=== PATIENT | male | born 1980 | race Caucasian/White ===

== ENCOUNTER 2016-10-14 11:00 | Inpatient (IN) | payer OTHER ==
[~2016-10-14] VITALS: Ht 182.9 cm; Wt 88.5 kg
--- NOTE | ~2016-10-14 | PN ---
Unit #: [id number] #: [id number] Patient: KEYONA LIU [id number] [facility] [address] [place] [address] [id number] MR#: [id number] NAME: KEYONA LIU ROOM: P171 Age: 35 Sex: M Admission Date: 10/14/2016 : 1980 Attending Physician: Kyle Castro M.D. Admitting Physician: Kyle Castro M.D. Primary Care Physician: Cari Primary Care Physician OSMAR PROGRESS NOTES DATE OF SERVICE 10/15/16 DISCUSSION Mr. Herring is a 35-year-old male seen on 10/15/16. Patient interviewed, chart reviewed, obtained information from nursing staff. Patient adjusting fairly well to unit rules. Seclusive, isolated, guarded, flat affect, anxious, nervous. Compliant with medications. REVIEW OF SYSTEMS Complete review of systems unremarkable. MENTAL STATUS EXAMINATION GENERAL APPEARANCE: Patient dressed casually. ATTENTION SPAN AND CONCENTRATION: Fair. ORIENTATION: Oriented in time, place and person. MOOD AND AFFECT: Labile. SPEECH: Monotone. THOUGHT PROCESS: [place]. Patient denied any thoughts of harming self or others. RECENT AND REMOTE MEMORY: Poor. INSIGHT AND JUDGEMENT: Poor. DIAGNOSIS Opiate use disorder, severe. ASSESSMENT/PLAN Advised to continue with current medication and therapeutic protocol. If needed, consider further adjustment of medication. Dictated by... Chela Mantilla/levi TD: 10/17/2016 11:10 JOB #: [id number] Unit #: [id number] #: [id number] Patient: KEYONA LIU PROGRESS NOTES Page 1 of 1 X Kyle Castro MD PROGRESS NOTE
--- NOTE | ~2016-10-14 | PN ---
Unit #: [id number] #: [id number] Patient: KEYONA LIU [id number] [facility] [address] [place] [address] [id number] MR#: [id number] NAME: KEYONA LIU ROOM: 71 Age: 35 Sex: M Admission Date: 10/14/2016 : 1980 Attending Physician: Kyle Castro M.D. Admitting Physician: Kyle Castro M.D. Primary Care Physician: Primary Care Physician Cari BOX NOTES DATE OF SERVICE: 10/16/2016 DISCUSSION Mr. Herring is a 35-year-old male. The patient interviewed, chart reviewed, and obtained information from nursing staff. The patient reported having severe anxiety and mood lability, but denied any thoughts of harming self or others. The patient's vital signs; temperature 98.6, pulse 80, blood pressure 132/82. REVIEW OF SYSTEMS Complete review of system unremarkable. MENTAL STATUS EXAMINATION General appearance; the patient dressed casually. Attention span and concentration, fair. Oriented in time, place, and person. Mood and affect, labile. Speech, monotone. Thought process, concrete. The patient denied any thoughts of harming self or others. Recent and remote memory, poor. Insight and judgment, poor. DIAGNOSES 1. Opioid use disorder, severe. 2. Amphetamine use disorder, severe. 3. Mood disorder, not otherwise specified. ASSESSMENT/PLAN Advised to continue with current medication and therapeutic protocol with a plan to add Vistaril 50 mg t.i.d. Dictated by... Kyle Castro M.D. TUSHAR/alma delia TD: 10/17/2016 20:12 JOB #: [id number] Unit #: [id number] #: [id number] Patient: KEYONA LIU PROGRESS NOTES Page 1 of 1 X Kyle Castro MD PROGRESS NOTE
--- NOTE | ~2016-10-14 | DS ---
Unit #: [id number] #: [id number] Patient: KEYONA LIU [id number] [facility] [address] [place] [address] [id number] MR#: [id number] NAME: KEYONA LIU ROOM: [facility] Age: 35 Sex: M Admission Date: 10/14/2016 : 1980 Discharge Date: 10/17/2016 Attending Physician: Kyle Castro M.D. Primary Care Physician: Primary Care Physician No DISCHARGE SUMMARY REASON FOR ADMISSION Detox, addiction. DIAGNOSTIC STUDIES LABORATORY DATA: Urine drugs screen positive for methadone. HOSPITAL COURSE The patient was admitted to inpatient unit on 10/14/2016 and discharged on 10/17/2016. The patient was treated with group therapy, individual therapy, medication management, and chemical dependency group. The patient was responsive to treatment and showed improvement. Subsequently, the patient was discharged with a plan to followup in outpatient program. DISCHARGE MEDICATIONS 1. Trazodone 150 mg at bedtime for sleep. 2. Neurontin 300 mg twice daily for chronic pain. The patient was given 2 weeks' supply only. DISCHARGE DIAGNOSES PSYCHIATRIC: Opiate use disorder, severe, F11.20 Amphetamine use disorder, severe, F15.20 Mood disorder not otherwise specified, F32.9 SECONDARY: Deferred. MEDICAL: Chronic pain. STRESSORS: Psychosocial stressor. FOLLOWUP CARE The patient to follow up in outpatient clinic as per director of social work. CONDITION ON DISCHARGE The patient pleasant, cooperative. Denied any psychotic symptom or any suicidal ideation. PROGNOSIS Guarded. DIET AND ACTIVITY As tolerated. Dictated by... Kyle Castro M.D. Unit #: [id number] #: [id number] Patient: KEYONA LIU SZC/bzg TD: 10/18/2016 11:11 JOB #: [id number] DISCHARGE SUMMARY Page 1 of 1 X Kyle Castro MD DISCHARGE SUMMARY
--- NOTE | ~2016-10-14 | HP ---
Unit #: [id number] #: [id number] Patient: KEYONA LIU [id number] [place] [address] [id number] MR#: [id number] NAME: KEYONA LIU ROOM: [facility] Age: 35 Sex: M Admission Date: 10/14/2016 : 1980 Attending Physician: Kyle Castro M.D. Admitting Physician: Kyle Castro M.D. Primary Care Physician: Primary Care Physician No HISTORY AND PHYSICAL HISTORY OF PRESENT ILLNESS Patient is a 35-year-old male admitted to [facility] on 10/14/2016 for opioid addiction. PAST MEDICAL HISTORY Includes polysubstance abuse including heroin daily. PAST SURGICAL HISTORY 1. Appendectomy. 2. Liposuction. SOCIAL HISTORY He is unemployed. He lives with his parents. He has a history of polysubstance and uses heroin daily. FAMILY MEDICAL HISTORY Noncontributory. ALLERGIES No known drug allergies. CURRENT MEDICATIONS Keflex. REVIEW OF SYSTEMS CONSTITUTIONAL: No fever or chills. HEENT: Denies any sore throat, ear pain or runny nose. CARDIOVASCULAR: Denies chest pain, irregular heart rhythm or palpitations. CHEST: Denies shortness of breath or cough. No hemoptysis. GASTROINTESTINAL: Denies nausea, vomiting, diarrhea or chronic constipation. ENDOCRINE: Denies history of increased thirst or urination. No recent significant weight loss or gain. GENITOURINARY: Denies dysuria, frequency, or hematuria. SKIN: Denies any rashes. HEMATOLOGIC: Denies history of increased bleeding or bruising. MUSCULOSKELETAL: Denies any hot, swollen joints. No generalized muscle pain. NEUROLOGIC: Denies problems with vision or speech. No frequent, severe headaches. No numbness, tingling or weakness in any extremities. Denies loss of bladder or bowel control. PHYSICAL EXAM Unit #: [id number] #: [id number] Patient: KEYONA LIU GENERAL: He is awake, alert and oriented in no acute distress. VITAL SIGNS: Temperature 98.0, heart rate 83, respiration 20, blood pressure 123/85. HEIGHT: 6 foot 0. WEIGHT: 195 pounds. SKIN: Warm and dry without rash or lesion. HEENT: Normocephalic. TMs not viewed. Oral and nasal passages clear. Conjunctivae clear. PERRLA. EOMs intact. NECK: Supple without lymphadenopathy or thyromegaly. HEART: Regular rate and rhythm without murmur. LUNGS: Clear. ABDOMEN: Soft, nontender. : Not done. EXTREMITIES: No evidence of cyanosis, clubbing or edema. Moves all without focal deficit. NEUROLOGICAL: Grossly within normal limits. Cranial Nerves: II: Visual leiva are intact. III, IV AND : Extraocular movements are intact. Pupils are equal, round and reactive to light. V: Facial sensation is grossly normal. VII: Facial movements and expression are normal. VIII: Auditory acuity grossly intact. IX, X: Uvula is midline. Phonation is normal. XI: Patient shrugs shoulders and turns head normally. XII: Tongue protrudes in the midline. Sensory and Motor Function: Sensory and motor sensation is grossly normal. Motor: moves all extremities well. IMPRESSION 1. Psychiatric admission. 2. Opioid addiction. RECOMMENDATIONS Psychiatric per psychiatrist. MEDICAL: No contraindication to participate in facility activities. MEDICAL PROGNOSIS Good. MEDICAL CONDITION Stable. Dictated by... Jairo Moore/lokesh TD: 10/16/2016 01:47 JOB #: [id number] Unit #: [id number] #: [id number] Patient: KEYONA LIU HISTORY AND PHYSICAL Page 1 of 1 X SEBAS FARRELL APRN X HISTORY AND PHYSICAL
--- NOTE | ~2016-10-14 | PA ---
Unit #: [id number] #: [id number] Patient: NIMA LIU [id number] [facility] [address] [place] [address] [id number] MR#: [id number] NAME: NIMA LIU ROOM: [facility] Age: 35 Sex: M Admission Date: 10/14/2016 : 1980 Date of Assessment: Attending Physician: Kyle Castro M.D. Admitting Physician: Kyle Castro M.D. PSYCHIATRIC ASSESSMENT INFORMANTS The patient reliability, fair informant and chart reliability, good. CHIEF COMPLAINT Addiction to opioids, needing help. HISTORY OF PRESENT ILLNESS Mr. Nima Liu is a 35-year-old male, who has a history of previous outpatient treatment in 06/2016, 07/2016, and other places. Lives at home with mother and father, currently unemployed. The patient presented with detox from opioids. The patient reported abusing opioids pills, addicted to opioids after plastic surgery 10 years ago. The patient reported he was on methadone for almost 4 years. The patient was attempting to wean himself off from methadone, went from 70 to 35 mg. The patient realized that it was not enough and decided to start using heroin. The patient is agitated and anxious. The patient reported tobacco use, age of onset 15; alcohol, age of onset 17; marijuana, age of onset 17; crack cocaine, age of onset 21; opioid, age of onset 22; amphetamine, age of onset 35; benzodiazepine, 24; and methadone, 31. The patient reported longest period of sobriety 2 to 3 days. The patient reported no history of any blackout, HIV, or hepatitis, but history of withdrawal symptoms and IV drug use. The patient reported abdominal cramping, muscle cramping, diarrhea, depressed mood, irritability, nervousness, poor appetite, poor concentration, restlessness, sleep problem, and tremor. PAST PSYCHIATRIC HISTORY Remarkable for history of [facility], [facility] on [facility]/09/2016. No known history of any suicide attempt. FAMILY HISTORY AND SOCIAL HISTORY The patient has a good support system. No history of abuse. The patient reports legal problem and court date. History of alcohol problem in grandfather and substance abuse in grandmother. MEDICAL HISTORY Unremarkable for any chronic medical illness. Musculoskeletal; muscle strength and tone, no atrophy or abnormal movement. Gait normal. MEDICATION HISTORY The patient was on methadone, but currently on no medication. ALLERGIES No known drug allergies. Unit #: [id number] #: [id number] Patient: NIMA LIU SUBSTANCE ABUSE HISTORY Please see above. REVIEW OF SYSTEMS HEENT: Eyes, clear. Ears, nose, mouth, and throat; clear. CARDIOVASCULAR: Unremarkable. RESPIRATORY: Unremarkable. GI: Unremarkable. : Unremarkable. SKIN: Unremarkable. LYMPH NODE: Unremarkable. NEUROLOGIC: Unremarkable. ENDOCRINE: Unremarkable. HEMATOLOGIC: Unremarkable. ALLERGIC/IMMUNOLOGIC: Unremarkable. MUSCULOSKELETAL: Muscle strength and tone, no atrophy or abnormal movement. Gait normal. MENTAL STATUS EXAMINATION CONSTITUTIONAL: Measurement of vital signs; temperature 98.0, heart rate 83, respiratory rate 20, and blood pressure 123/85. Height 6 feet and weight 195 pounds. GENERAL APPEARANCE: The patient dressed casually. The patient did not show any facial deformity. MUSCULOSKELETAL: Please see above. PSYCHIATRIC EXAMINATION Description of speech; regular rate, normal volume, normal articulation, and coherent. Description of thought process, goal directed. Description of association, intact. Description of abnormal psychotic thinking; the patient denied any hallucination or delusions, but mood lability and substance abuse. Description of thought process, goal directed. Description of judgment: Concerning everyday activity, poor. Social situation, poor. Concerning psychiatric condition, poor. Complete mental status examination; oriented in time, place, and person. Recent and remote memory, fair. Attention span and concentration, fair. Language, able to name object and repeat phrases. Fund of knowledge, aware of current event and passive vocabulary intact. Mood and affect, sad and dysphoric. Insight and judgment, fair to poor. ASSETS AND LIABILITIES Assets, the patient is articulate and able to take care of his ADL. Liability, history of depression and substance abuse. ADMITTING DIAGNOSES Psychiatric: Opioid use disorder, severe, F11.20; amphetamine use disorder, severe, F15.20; and mood disorder, not otherwise specified, F32.9. Secondary diagnosis: Deferred. Medical diagnosis: None. Stressors: Psychosocial stressors and legal problem. PSYCHIATRIC PLAN AND TREATMENT GOAL AND DISCHARGE PLAN Unit #: [id number] #: [id number] Patient: NIMA LIU 1. Advised to admit the patient on the inpatient unit. Provide safe, supportive, and structured environment. 2. Ordered labs; CBC, CMP, UA, and UDS. 3. Precaution for aggression, self-harm, detox protocol, and detox monitoring. 4. The patient to start with Seroquel for mood symptom and sleep. The patient to attend group therapy, individual therapy, and chemical dependency program. Treatment goal to attain euthymic mood, gain insight into his problem, and learn coping skills. DISCHARGE PLAN Plan to stabilize the patient and consider followup in outpatient program. ESTIMATED LENGTH OF STAY 5 days. Dictated by... Kyle Castro M.D. TUSHAR/alma delia TD: 10/15/2016 18:42 JOB #: [id number] PSYCHIATRIC ASSESSMENT Page 1 of 1 X Kyle Castro MD X PSYCHIATRIC ASSESSMENT
[2016-10-17 12:53] LABS: URINE APPEARANCE CLEAR; URINE BILIRUBIN NEG (NEG); URINE BLOOD NEG (NEG); URINE COLOR YELLOW; URINE GLUCOSE NEG (NEG); URINE KETONE NEG (NEG); URINE LEUKOCYTE ESTERASE NEG (NEG); URINE NITRATE NEG (NEG); URINE PH 6.5 (5-8); URINE PROTEIN NEG (NEG); URINE SPECIFIC GRAVITY 1.004 (1.003-1.035); URINE UROBILINOGEN 0.2 MG/DL (NEG)
[2016-10-17 13:53] LABS: AMPHETAMINE NEG (NEG); BARBITURATES NEG (NEG); BENZODIAZEPINES NEG (NEG); COCAINE NEG (NEG); MARIJUANA NEG (NEG); OPIATES NEG (NEG); TRICYCLIC ANTIDEPRESSANTS NEG (NEG); U METHADONE NEG (NEG)
== END 2016-10-17 10:05 | disposition home or self-care (01) | DRG 897 ==
LOC: P1E 14:08
PROVIDERS: Psychiatry & Neurology Psychiatry
PROC: HZ2ZZZZ Detoxification Services for Substance Abuse Treatment (ICD-10-PCS; principal; 2016-10-14)
DX: F11.20 Opioid dependence, uncomplicated (principal); F15.20 Other stimulant dependence, uncomplicated; F39 Unspecified mood [affective] disorder; Z81.1 Family history of alcohol abuse and dependence; Z81.3 Family history of other psychoactive substance abuse and dependence; G89.29 Other chronic pain
CPT/HCPCS: 80307; 81003